=== PATIENT | male | born 1990 | race Caucasian/White ===

== ENCOUNTER 2023-12-11 08:33 | Emergency (ER) | payer OTHER, SELFPAY ==
[2023-12-11 08:33] VITALS: BP 113/70; PULSE 67; RESP 14; TEMP 36.7; O2SAT 98; BMI 26.9
--- NOTE | 2023-12-11 08:34 | ED.RN ---
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 UNABLE TO DETERMINE IF HE IS A DRUG TEST, ATTEMPTED TO CALL [facility] BUT NO ANSWER. [facility] HAS NO PROMPT CARE RN HERE IN [place].
--- NOTE | 2023-12-11 09:15 | RAD_ITS ---
STUDY: X-RAY - RIGHT HAND REASON FOR EXAM: Male, 33 years old. Injury/Pain- thumb and index fingers TECHNIQUE: 3 view(s) of the hand. COMPARISON: None. FINDINGS: Normal radiocarpal articulation. Normal distal radioulnar joint. Normal visualized carpal bones. Normal carpal articulations Normal carpometacarpal articulation of the thumb. Normal second through fifth carpometacarpal joints. Normal metacarpi. Normal metacarpophalangeal joint of the thumb. Normal interphalangeal joint of the thumb. Normal proximal and distal phalanges of the thumb. Normal metacarpophalangeal joints of the second through fifth fingers. Normal proximal and distal interphalangeal joints of the second through fifth fingers. Normal phalanges of the second through fifth fingers. The soft tissue structures are unremarkable. RAD/Hand Min 3 Views IMPRESSION: Normal x-ray examination of the hand. Electronically Signed: Collin Krueger MD at 9:52 EDT ,
[2023-12-11] MEDS: Ibuprofen 600 MG Tablet PO (09:32)
--- NOTE | 2023-12-11 09:54 | EX.ED.UPPERE ---
HPI History of Present Illness Chief Complaint: Upper Extremity Injury Informant: patient Narrative Narrative: Patient is a [id number] male with no significant past medical history presenting with right hand injury. This occurred at work. Patient states he lost his balance and fell onto his right hand. He is not sure if he was outstretched or of the finger were more in a fist. He initially had severe pain of his thumb and index finger however when the pain did not subside especially in his thumb he knew he needed to be evaluated. Pain is worse with movement of the fingers especially with flexion and adduction of the thumb. He states his index finger does feel stiff. Denies any associated numbness or tingling. Did not take anything for pain prior to arrival. 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 No other complaints or concerns reported at this time. PFSH PFSH Medical History no medical history Allergy/AdvReac Type Severity Reaction Status Date / Time No Known Allergies Allergy Verified 12/11/23 08:34 Social History Smoking Status: Never smoker ROS ROS ED Constitutional Constitutional ED: Denies chills or fever(s) Gastrointestinal Gastrointestinal: Denies nausea Musculoskeletal Musculoskeletal: Reports other Details: Right hand pain Integumentary Denies Abrasions or rash Neurologic Neurologic: Denies paresthesias or weakness Psychiatric Psychiatric: Denies anxiety Hematologic/Lymphatic Hematologic/Lymphatic: Denies easy bleeding or easy bruising EXAM Physical Exam Const Vital Signs: 12/11/23 08:33 Temperature 98.1 F Temperature Source Temporal Pulse Rate 67 Respiratory Rate 14 Blood Pressure 113/70 Blood Pressure Mean 84 Pulse Ox 98 Oxygen Delivery Method Room Air Positive well nourished and well developed General Appearance ED: well developed and NAD HEENT Reports moist mucous membranes Eyes PERRL Neck full ROM and supple Chest Wall inspection of chest normal Resp normal respiratory effort Cardio regular rate and regular rhythm Cardio Narrative: 2+ radial pulses Extremity Extremity Narrative: No obvious deformity. Tenderness over the right first phalanges more diffusely and along the extensor tendon of the right second finger. Range of motion is preserved however patient does not like to fully adduct and flex his thumb secondary to increased pain. Able to cross his fingers, adduct and AB duct his fingers as well. He is able to make a fist but it is painful for the movement of his thumb. There is some slight crepitus with palpation along the dorsal aspect of the right index finger and distal metacarpal. Neuro oriented x3, moves all extremities, no focal motor deficits and no sensory deficits noted Sensorium / Orientation: alert Motor Exam: muscle tone normal throughout; Negative for general weakness Psych mental status grossly normal Skin Lesions: no lesions Rashes: no rashes Trauma: no lacerations or abrasions MDM MDM MDM Narrative Medical decision making narrative: Patient is evaluated for right hand injury. No obvious deformity appreciated. Is neurovascularly intact. Patient has stable vital signs in the ER. Differential includes hand or finger fracture, dislocation as well as strain/tendinous injury. X-ray of the right hand reviewed by myself as well as radiology does not show any acute fracture or other acute abnormality. Patient will be treated as a sprain and placed in an Mauricio wrap. Is counseled take NSAIDs and alternate with Tylenol for pain control. Counseled on RICE therapy. Is given outpatient referral with now [facility] for Workmen's Compensation. Workmen's Compensation paperwork is filed on the patient's behalf. Patient given return precautions. Discharged home in stable condition. While in the ER patient did tell me that he has had 1 year of of pain with movement to the right great toe. Discussed differential including osteoarthritis, gout and runners foot. Patient counseled that he should follow-up with podiatry. Patient does not remove shoe for me to evaluate. Radiography Diagnostic Testing: Clinical Impression(s) from Imaging Studies Hand X-Ray 12/11/23 09:15 IMPRESSION: Normal x-ray examination of the hand. Electronically Signed: Collin Krueger MD at 9:52 EDT , Discharge Plan Triage Chief Complaint: Upper Extremity Injury ED Provider: Reshma Farias Dx/Rx/DC Orders Clinical Impression: Sprain of hand, right Instructions: ED Hand Sprain, ED Finger Sprain Primary Care Provider: Care Physician,No Primary Referrals: Corporate,Care [Group of Physicians] - 1 Week if not improving Care Physician,No Primary [Primary Care Provider] - Activity Restrictions/Additional Instructions: Please alternate ibuprofen and Tylenol for pain. Ice the area. Wear Mauricio wrap as needed for comfort. Please wear it at work. Follow-up with a Workmen's Compensation/corporate care if this is not improving within the next week. Print Language: Uzbek Disposition Disposition: Home, Self Care Discharge Date/Time: 12/11/23 11:21
== END 2023-12-11 11:21 | disposition home or self-care (01) ==
PROVIDERS: Emergency Provider Emergency Medicine; Visit Provider Emergency Medicine
DX: S63.91XA Sprain of unspecified part of right wrist and hand, initial encounter (principal); W19.XXXA Unspecified fall, initial encounter
CPT/HCPCS: 73130; 99282